=== PATIENT | male | born 1960 | race Hispanic/Latino ===

== ENCOUNTER 2023-09-28 11:09 | Inpatient (IN) | payer SELFPAY ==
[2023-09-28 12:11] LABS: #Monocytes 0.7 thou/uL (0.11-0.59); %Basophils 0.2 % (0.0-1.0); %Lymphocytes 11.9 % (21.0-51.0); %Monocytes 4.9 % (0.0-10.0); %Neutrophils 82.6 % (42.0-75.0); Hematocrit 34.8 % (42.0-52.0); Mean Corpuscular HGB CONC 34.5 g/dL (32.0-36.0); Mean Corpuscular Hemoglobin 28.4 pg (27.0-31.0); Mean Corpuscular Volume 82.5 fl (78.0-98.0); Mean Platelet Volume 10.5 fL (7.4-10.4); Platelet Count 329 10x3/uL (130-400); RBC Distribution Width 13.7 % (11.5-14.5); Red Blood Cell (RBC) Count 4.22 mill/uL (4.70-6.10); White Blood Cell (WBC) Count 13.3 10x3/uL (4.8-10.8)
[2023-09-28 12:34] LABS: ALT (SGPT) 15 U/L (8-55); AST (SGOT) 22 U/L (5-34); Albumin 4.7 g/dL (3.5-5.0); Alkaline Phosphatase 92 U/L (40-110); Anion Gap 22 mmol/L (10-20); BUN (Urea Nitrogen) 56 mg/dL (8.4-25.7); Bilirubin, Total 1.4 mg/dL (0.2-1.2); Calc. Creatinine Clearance 0 mL/min (70-130); Carbon Dioxide 21 mmol/L (22-29); Chloride 102 mmol/L (98-107); Estimated GFR 25; Globulin 3.8 g/dL (2.4-3.5); Glucose 383 mg/dL (70-105); Lipase 20 U/L (8-78); Potassium 4.6 mmol/L (3.5-5.1); Protein, Total 8.5 g/dL (6.0-8.3); Sodium 140 mmol/L (136-145)
[2023-09-28] MEDS ORDERED: Ondansetron PF 4 MG/2 ML Vial ONE (12:39)
[2023-09-28 14:06] LABS: Bacteria/HPF 2+ HPF (None Seen); Bilirubin Negative (Negative); Blood, Urine 1+ (Negative); CAUTI Indications for Culture Pelvic or flank pain; Clarity Turbid (Clear); Glucose, Urine (Dipstick) Greater than 1000 mg/dL (Negative); Ketone, Urine 20 mg/dL (Negative); Leukocyte 500 Leu/uL (Negative); Nitrite Negative (Negative); Protein, Urine (Dipstick) 50 mg/dL (Neg-Trace); Specific Gravity, Urine 1.016 (1.002-1.036); Squamous Epithelial 0-3 HPF (0-3); Urobilinogen Normal mg/dL (Less than 2); WBC/HPF Greater than 50 HPF (0-3); pH, Urine 5.5 (5.0-9.0)
[2023-09-28 14:11] LABS: Urine Culture Reflex Yes Yes
[2023-09-28] MEDS ORDERED: Sodium Chloride 0.9% 100 ML ONE (14:38)
[2023-09-28] MEDS ORDERED: cefTRIAXone (ROCEPHIN) 1 GM VIAL ONE (14:38)
[2023-09-28] MEDS ORDERED: INSULIN REGULAR IN 0.9 % NACL 100 UNITS/100 ML BAG ONE (15:10)
[2023-09-28 15:14] LABS: Actual Bicarbonate (HCO3v) 18.2 mEq/L (22-28); Base Excess -7.9 mEq/L (-2.0 to +3.0); Calcium, Ionized (venous) 1.14 mmol/L (1.16-1.32); Chloride (VBG) 103 mmol/L (98-106); Hematocrit-VBG 36 % (42.0-52.0); Hemoglobin (Hb) 12.3 g/dL (13.1-17.2); Potassium (VBG) 4.64 mmol/L (3.70-5.30); Sodium 141 mmol/L (133-146); pH (venous) 7.286 (7.32-7.43)
[2023-09-28] MEDS ORDERED: NS 0.9% w/ 20 MEQ KCL 1,000 ML ONE (17:10)
[2023-09-28] MEDS ORDERED: Dextrose 10% in Water 250 ML ONE (17:27)
[2023-09-28] MEDS ORDERED: D5 1/2 NS w/20 mEq KCL 0 ML ONE (17:35)
[2023-09-28] MEDS ORDERED: Electrolyte Replacement Protocol 1 EACH IVPB ONE (18:27)
[2023-09-28] MEDS ORDERED: Dextrose 50% Abboject 50 ML SYRINGE SLOW IVP PRN ×2 (18:27→19:45)
[2023-09-28] MEDS ORDERED: Acetaminophen 650 MG Suppository PR PRN (18:27)
[2023-09-28] MEDS ORDERED: Sodium Chloride 0.9% 1,000 ML IV PRN ×4 (18:27)
[2023-09-28] MEDS ORDERED: D5 1/2 NS w/20 mEq KCL 1,000 ML IV PRN (18:27)
[2023-09-28] MEDS ORDERED: NS 0.9% w/ 20 MEQ KCL 1,000 ML IV PRN ×2 (18:27)
[2023-09-28] MEDS ORDERED: HUMULIN R 100 UNITS in Sodium Chloride 0.9% 100 ML IVPB SCH (18:27)
[2023-09-28] MEDS ORDERED: Dextrose 5 %-0.45 % NaCl 1,000 ML IV PRN (18:27)
[2023-09-28] MEDS ORDERED: Ondansetron ODT 4 MG TAB PO PRN (18:27)
[2023-09-28] MEDS ORDERED: Senokot S 8.6-50 MG TAB PO PRN (18:27)
[2023-09-28] MEDS ORDERED: Guaifenesin DM 100-10/5 ML UDCUP PO PRN (18:27)
[2023-09-28] MEDS ORDERED: Acetaminophen 325 MG TAB PO PRN (18:27)
[2023-09-28 18:32] VITALS: BMI 18.3
[2023-09-28 19:12] LABS: Anion Gap 17 mmol/L (10-20); BUN (Urea Nitrogen) 46 mg/dL (8.4-25.7); Calc. Creatinine Clearance 28 mL/min (70-130); Calcium 8.6 mg/dL (7.8-10.44); Carbon Dioxide 19 mmol/L (22-29); Chloride 106 mmol/L (98-107); Estimated GFR 34; Glucose 150 mg/dL (70-105); Potassium 3.7 mmol/L (3.5-5.1); Sodium 138 mmol/L (136-145)
[2023-09-28] MEDS ORDERED: Glucagon 1 MG/ML KIT IM PRN (19:45)
[2023-09-28] MEDS ORDERED: Dextrose 5% in Water 1,000 ML IV PRN (19:45)
[2023-09-28] MEDS ORDERED: HumaLOG 300 UNITS/3 ML VIAL SC PRN (19:45)
[2023-09-28] MEDS ORDERED: Insulin Glargine 30 UNITS/0.3 ML VIAL SC SCH (20:00)
[2023-09-28] MEDS: Famotidine 20 MG TAB PO SCH (22:44)
[2023-09-28] MEDS: Insulin Glargine 30 UNITS/0.3 ML VIAL SC SCH (23:07)
[2023-09-28 23:14] LABS: Anion Gap 13 mmol/L (10-20); BUN (Urea Nitrogen) 41 mg/dL (8.4-25.7); Calc. Creatinine Clearance 29 mL/min (70-130); Calcium 8.5 mg/dL (7.8-10.44); Carbon Dioxide 19 mmol/L (22-29); Chloride 108 mmol/L (98-107); Estimated GFR 35; Glucose 147 mg/dL (70-105); Sodium 136 mmol/L (136-145)
[2023-09-29 03:09] LABS: Anion Gap 13 mmol/L (10-20); BUN (Urea Nitrogen) 38 mg/dL (8.4-25.7); Calc. Creatinine Clearance 31 mL/min (70-130); Calcium 8.3 mg/dL (7.8-10.44); Carbon Dioxide 20 mmol/L (22-29); Chloride 107 mmol/L (98-107); Estimated GFR 39; Glucose 182 mg/dL (70-105); Potassium 3.9 mmol/L (3.5-5.1); Sodium 136 mmol/L (136-145)
[2023-09-29] MEDS: Ondansetron PF 4 MG/2 ML Vial IVP PRN ×2 (04:50→19:21)
[2023-09-29 06:10] LABS: #Basophils 0.1 thou/uL (0.0-0.2); #Monocytes 0.6 thou/uL (0.11-0.59); #Neutrophils 7.1 thou/uL (1.40-6.50); %Basophils 0.5 % (0.0-1.0); %Eosinophils 0.3 % (0.0-10.0); %Lymphocytes 22.8 % (21.0-51.0); %Monocytes 6.2 % (0.0-10.0); %Neutrophils 69.9 % (42.0-75.0); Hematocrit 32.9 % (42.0-52.0); Hemoglobin 11.3 g/dL (14.0-18.0); Mean Corpuscular HGB CONC 34.3 g/dL (32.0-36.0); Mean Corpuscular Volume 81.4 fl (78.0-98.0); Mean Platelet Volume 11.5 fL (7.4-10.4); Platelet Count 258 10x3/uL (130-400); RBC Distribution Width 13.6 % (11.5-14.5); Red Blood Cell (RBC) Count 4.04 mill/uL (4.70-6.10); White Blood Cell (WBC) Count 10.1 10x3/uL (4.8-10.8)
[2023-09-29 06:16] LABS: Hemoglobin A1c 12.9 % (4.0-6.0)
[2023-09-29 06:34] LABS: Anion Gap 15 mmol/L (10-20); BUN (Urea Nitrogen) 35 mg/dL (8.4-25.7); Calc. Creatinine Clearance 31 mL/min (70-130); Calcium 8.9 mg/dL (7.8-10.44); Carbon Dioxide 20 mmol/L (22-29); Chloride 106 mmol/L (98-107); Estimated GFR 38; Glucose 164 mg/dL (70-105); Potassium 3.8 mmol/L (3.5-5.1); Sodium 137 mmol/L (136-145)
[2023-09-29] MEDS ORDERED: Promethazine HCl 25 MG in Sodium Chloride 0.9% 50 ML IVPB PRN (06:45)
[2023-09-29] MEDS ORDERED: Prochlorperazine Edisylate 10 MG in Sodium Chloride 0.9% 50 ML IVPB PRN (07:02)
[2023-09-29] MEDS: Sodium Chloride 0.9% 1,000 ML IV SCH ×2 (07:23→17:35)
[2023-09-29] MEDS ORDERED: Labetalol HCl 100 MG/20 ML VIAL SLOW IVP PRN (08:09)
[2023-09-29] MEDS ORDERED: hydrALAZINE 20 MG/ML VIAL SLOW IVP PRN (08:09)
[2023-09-29] MEDS: Tamsulosin HCl 0.4 MG CAP PO SCH (08:47)
[2023-09-29] MEDS: Amlodipine 5 MG TAB PO SCH (08:48)
[2023-09-29] MEDS ORDERED: Metoclopramide HCl 10 MG/2 ML VIAL IVP PRN (10:35)
[2023-09-29] MEDS: HumaLOG 300 UNITS/3 ML VIAL SC PRN (12:44)
[2023-09-29] MEDS: cefTRIAXone\\ROCEPHIN 1 GM in Sodium Chloride 0.9% 100 ML IVPB SCH (14:31)
[2023-09-29] MEDS: Famotidine 20 MG TAB PO SCH (19:21)
[2023-09-29] MEDS ORDERED: hydrOXYzine 25 MG TAB PO SCH (19:45)
[2023-09-29] MEDS: Insulin Glargine 30 UNITS/0.3 ML VIAL SC SCH (20:33)
[2023-09-30] MEDS: Sodium Chloride 0.9% 1,000 ML IV SCH ×4 (02:53→23:29)
[2023-09-30 05:57] LABS: #Basophils 0.1 thou/uL (0.0-0.2); #Eosinphils 0.1 thou/uL (0.0-0.7); #Monocytes 0.6 thou/uL (0.11-0.59); #Neutrophils 3.3 thou/uL (1.40-6.50); %Basophils 0.8 % (0.0-1.0); %Lymphocytes 34.9 % (21.0-51.0); %Monocytes 9.2 % (0.0-10.0); %Neutrophils 53.9 % (42.0-75.0); Hematocrit 28.1 % (42.0-52.0); Hemoglobin 9.8 g/dL (14.0-18.0); Mean Corpuscular HGB CONC 34.9 g/dL (32.0-36.0); Mean Corpuscular Hemoglobin 28.7 pg (27.0-31.0); Mean Corpuscular Volume 82.4 fl (78.0-98.0); Mean Platelet Volume 11.1 fL (7.4-10.4); Platelet Count 235 10x3/uL (130-400); RBC Distribution Width 13.5 % (11.5-14.5); Red Blood Cell (RBC) Count 3.41 mill/uL (4.70-6.10); White Blood Cell (WBC) Count 6.1 10x3/uL (4.8-10.8)
[2023-09-30 06:29] LABS: Anion Gap 12 mmol/L (10-20); BUN (Urea Nitrogen) 22 mg/dL (8.4-25.7); Calc. Creatinine Clearance 39 mL/min (70-130); Calcium 8.3 mg/dL (7.8-10.44); Carbon Dioxide 21 mmol/L (22-29); Chloride 109 mmol/L (98-107); Estimated GFR 50; Glucose 97 mg/dL (70-105); Potassium 3.5 mmol/L (3.5-5.1); Sodium 138 mmol/L (136-145)
[2023-09-30] MEDS: Amlodipine 5 MG TAB PO SCH (08:34)
[2023-09-30] MEDS: Tamsulosin HCl 0.4 MG CAP PO SCH (08:34)
[2023-09-30] MEDS: HumaLOG 300 UNITS/3 ML VIAL SC PRN ×2 (13:30→17:45)
[2023-09-30] MEDS: cefTRIAXone\\ROCEPHIN 1 GM in Sodium Chloride 0.9% 100 ML IVPB SCH (14:54)
[2023-09-30] MEDS: Famotidine 20 MG TAB PO SCH (20:24)
[2023-09-30] MEDS: Insulin Glargine 30 UNITS/0.3 ML VIAL SC SCH (20:24)
[2023-10-01] MEDS: Sodium Chloride 0.9% 1,000 ML IV SCH ×3 (05:05→21:24)
[2023-10-01 06:12] LABS: Anion Gap 12 mmol/L (10-20); BUN (Urea Nitrogen) 17 mg/dL (8.4-25.7); Calc. Creatinine Clearance 34 mL/min (70-130); Carbon Dioxide 20 mmol/L (22-29); Chloride 108 mmol/L (98-107); Estimated GFR 42; Glucose 199 mg/dL (70-105); Potassium 3.5 mmol/L (3.5-5.1); Sodium 136 mmol/L (136-145)
[2023-10-01] MEDS: Amlodipine 5 MG TAB PO SCH (08:19)
[2023-10-01] MEDS: Tamsulosin HCl 0.4 MG CAP PO SCH (08:19)
[2023-10-01] MEDS: HumaLOG 300 UNITS/3 ML VIAL SC PRN ×2 (12:48→17:29)
[2023-10-01] MEDS: CEFAZOLIN 1 GM in Sodium Chloride 0.9% 100 ML IVPB SCH ×2 (14:13→21:23)
[2023-10-01] MEDS: Famotidine 20 MG TAB PO SCH (21:23)
[2023-10-01] MEDS: Insulin Glargine 30 UNITS/0.3 ML VIAL SC SCH (21:34)
[2023-10-02] MEDS: CEFAZOLIN 1 GM in Sodium Chloride 0.9% 100 ML IVPB SCH ×3 (05:28→20:49)
[2023-10-02] MEDS: Sodium Chloride 0.9% 1,000 ML IV SCH ×2 (05:29→20:33)
[2023-10-02 06:40] LABS: #Eosinphils 0.3 thou/uL (0.0-0.7); #Monocytes 0.5 thou/uL (0.11-0.59); #Neutrophils 2.8 thou/uL (1.40-6.50); %Basophils 0.6 % (0.0-1.0); %Eosinophils 5.9 % (0.0-10.0); %Lymphocytes 32.9 % (21.0-51.0); %Monocytes 8.7 % (0.0-10.0); %Neutrophils 51.7 % (42.0-75.0); Hematocrit 26.8 % (42.0-52.0); Hemoglobin 9.3 g/dL (14.0-18.0); Mean Corpuscular HGB CONC 34.7 g/dL (32.0-36.0); Mean Corpuscular Hemoglobin 28.2 pg (27.0-31.0); Mean Corpuscular Volume 81.2 fl (78.0-98.0); Mean Platelet Volume 11.4 fL (7.4-10.4); Platelet Count 202 10x3/uL (130-400); RBC Distribution Width 13.3 % (11.5-14.5); White Blood Cell (WBC) Count 5.4 10x3/uL (4.8-10.8)
[2023-10-02 07:09] LABS: Anion Gap 10 mmol/L (10-20); BUN (Urea Nitrogen) 15 mg/dL (8.4-25.7); Calc. Creatinine Clearance 34 mL/min (70-130); Carbon Dioxide 23 mmol/L (22-29); Chloride 109 mmol/L (98-107); Estimated GFR 43; Glucose 194 mg/dL (70-105); Magnesium 1.9 mg/dL (1.6-2.6); Potassium 3.5 mmol/L (3.5-5.1); Sodium 138 mmol/L (136-145)
[2023-10-02] MEDS: Amlodipine 10 MG TAB PO SCH (08:32)
[2023-10-02] MEDS: Tamsulosin HCl 0.4 MG CAP PO SCH (08:32)
[2023-10-02] MEDS: Polyethylene Glycol 3350 17 GM Packet PO SCH (10:24)
[2023-10-02] MEDS: Senokot S 8.6-50 MG TAB PO SCH ×2 (10:24→20:35)
[2023-10-02] MEDS: HumaLOG 300 UNITS/3 ML VIAL SC PRN (12:23)
[2023-10-02] MEDS ORDERED: Aspirin 325 mg Enteric Coated Tablet PO SCH (14:00)
[2023-10-02] MEDS: Insulin Glargine 30 UNITS/0.3 ML VIAL SC SCH (20:33)
[2023-10-02] MEDS: Famotidine 20 MG TAB PO SCH (20:34)
[2023-10-02] MEDS: Atorvastatin Calcium 40 MG TAB PO SCH (20:34)
[2023-10-03] MEDS: CEFAZOLIN 1 GM in Sodium Chloride 0.9% 100 ML IVPB SCH ×3 (05:05→21:16)
[2023-10-03] MEDS: Sodium Chloride 0.9% 1,000 ML IV SCH (05:05)
[2023-10-03 06:01] LABS: #Eosinphils 0.4 thou/uL (0.0-0.7); #Monocytes 0.5 thou/uL (0.11-0.59); #Neutrophils 3.7 thou/uL (1.40-6.50); %Basophils 0.7 % (0.0-1.0); %Eosinophils 7.1 % (0.0-10.0); %Lymphocytes 24.3 % (21.0-51.0); %Monocytes 7.4 % (0.0-10.0); %Neutrophils 60.3 % (42.0-75.0); Hematocrit 26.7 % (42.0-52.0); Hemoglobin 9.2 g/dL (14.0-18.0); Mean Corpuscular HGB CONC 34.5 g/dL (32.0-36.0); Mean Corpuscular Hemoglobin 27.9 pg (27.0-31.0); Mean Corpuscular Volume 80.9 fl (78.0-98.0); Mean Platelet Volume 11.8 fL (7.4-10.4); Platelet Count 217 10x3/uL (130-400); RBC Distribution Width 13.5 % (11.5-14.5); White Blood Cell (WBC) Count 6.1 10x3/uL (4.8-10.8)
[2023-10-03 06:18] LABS: Iron 19 ug/dL (65-175); Iron Binding Capacity, Total 168 mcg/dL (261-462)
[2023-10-03 06:21] LABS: Anion Gap 11 mmol/L (10-20); BUN (Urea Nitrogen) 17 mg/dL (8.4-25.7); Calc. Creatinine Clearance 33 mL/min (70-130); Calcium 8.1 mg/dL (7.8-10.44); Carbon Dioxide 24 mmol/L (22-29); Chloride 109 mmol/L (98-107); Estimated GFR 41; Glucose 235 mg/dL (70-105); Iron 19 ug/dL (65-175); Iron Binding Capacity, Total 170 mcg/dL (261-462); Sodium 140 mmol/L (136-145)
[2023-10-03 06:43] LABS: Ferritin 167.67 ng/mL (22-322)
[2023-10-03] MEDS: HumaLOG 300 UNITS/3 ML VIAL SC PRN (07:50)
[2023-10-03] MEDS ORDERED: Cyanocobalamin 1000 MCG/ML VIAL IM SCH (09:00)
[2023-10-03] MEDS: Polyethylene Glycol 3350 17 GM Packet PO SCH (11:53)
[2023-10-03] MEDS: Senokot S 8.6-50 MG TAB PO SCH ×2 (11:53→21:18)
[2023-10-03] MEDS: Aspirin 81 mg Enteric Coated Tablet PO SCH (11:54)
[2023-10-03] MEDS: Amlodipine 10 MG TAB PO SCH (11:54)
[2023-10-03] MEDS: Tamsulosin HCl 0.4 MG CAP PO SCH (11:54)
[2023-10-03] MEDS: Cyanocobalamin (Vitamin B-12) 1,000 MCG TAB PO SCH (11:57)
[2023-10-03] MEDS ORDERED: Milk Of Magnesia 30 ML UDCUP PO PRN (17:56)
[2023-10-03] MEDS: Insulin Glargine 30 UNITS/0.3 ML VIAL SC SCH (21:16)
[2023-10-03] MEDS: Atorvastatin Calcium 40 MG TAB PO SCH (21:17)
[2023-10-03] MEDS: Famotidine 20 MG TAB PO SCH (21:18)
[2023-10-04 03:40] LABS: #Basophils 0.1 thou/uL (0.0-0.2); #Eosinphils 0.6 thou/uL (0.0-0.7); #Monocytes 0.7 thou/uL (0.11-0.59); #Neutrophils 4.2 thou/uL (1.40-6.50); %Basophils 0.7 % (0.0-1.0); %Eosinophils 7.4 % (0.0-10.0); %Lymphocytes 27.1 % (21.0-51.0); %Monocytes 9.6 % (0.0-10.0); %Neutrophils 54.8 % (42.0-75.0); Hematocrit 27.8 % (42.0-52.0); Hemoglobin 9.6 g/dL (14.0-18.0); Mean Corpuscular HGB CONC 34.5 g/dL (32.0-36.0); Mean Corpuscular Hemoglobin 28.2 pg (27.0-31.0); Mean Corpuscular Volume 81.5 fl (78.0-98.0); Mean Platelet Volume 11.3 fL (7.4-10.4); Platelet Count 229 10x3/uL (130-400); RBC Distribution Width 13.8 % (11.5-14.5); Red Blood Cell (RBC) Count 3.41 mill/uL (4.70-6.10); White Blood Cell (WBC) Count 7.7 10x3/uL (4.8-10.8)
[2023-10-04 04:13] LABS: Anion Gap 12 mmol/L (10-20); BUN (Urea Nitrogen) 17 mg/dL (8.4-25.7); Calc. Creatinine Clearance 30 mL/min (70-130); Calcium 8.5 mg/dL (7.8-10.44); Carbon Dioxide 26 mmol/L (22-29); Chloride 105 mmol/L (98-107); Estimated GFR 36; Glucose 136 mg/dL (70-105); Magnesium 1.8 mg/dL (1.6-2.6); Potassium 3.9 mmol/L (3.5-5.1); Sodium 139 mmol/L (136-145)
[2023-10-04] MEDS: CEFAZOLIN 1 GM in Sodium Chloride 0.9% 100 ML IVPB SCH (06:33)
[2023-10-04] MEDS: HumaLOG 300 UNITS/3 ML VIAL SC PRN ×3 (06:34→18:12)
[2023-10-04] MEDS: Tamsulosin HCl 0.4 MG CAP PO SCH (09:09)
[2023-10-04] MEDS: Senokot S 8.6-50 MG TAB PO SCH ×2 (09:09→21:36)
[2023-10-04] MEDS: Polyethylene Glycol 3350 17 GM Packet PO SCH (09:09)
[2023-10-04] MEDS: Aspirin 81 mg Enteric Coated Tablet PO SCH (09:09)
[2023-10-04] MEDS: Cyanocobalamin (Vitamin B-12) 1,000 MCG TAB PO SCH (09:09)
[2023-10-04] MEDS: Amlodipine 10 MG TAB PO SCH (09:09)
[2023-10-04] MEDS: Sodium Chloride 0.9% 1,000 ML IV SCH (10:05)
[2023-10-04 13:37] LABS: Creatinine, Urine 35.84 mg/dL (63-166)
[2023-10-04] MEDS: Atorvastatin Calcium 40 MG TAB PO SCH (21:36)
[2023-10-04] MEDS: Insulin Glargine 30 UNITS/0.3 ML VIAL SC SCH (21:36)
[2023-10-05 04:59] LABS: #Eosinphils 0.6 thou/uL (0.0-0.7); #Monocytes 0.7 thou/uL (0.11-0.59); #Neutrophils 4.2 thou/uL (1.40-6.50); %Basophils 0.4 % (0.0-1.0); %Eosinophils 7.5 % (0.0-10.0); %Lymphocytes 25.2 % (21.0-51.0); %Monocytes 9.8 % (0.0-10.0); %Neutrophils 56.7 % (42.0-75.0); Hematocrit 25.6 % (42.0-52.0); Hemoglobin 8.7 g/dL (14.0-18.0); Mean Corpuscular Hemoglobin 28.6 pg (27.0-31.0); Mean Corpuscular Volume 84.2 fl (78.0-98.0); Mean Platelet Volume 11.2 fL (7.4-10.4); Platelet Count 236 10x3/uL (130-400); Red Blood Cell (RBC) Count 3.04 mill/uL (4.70-6.10); White Blood Cell (WBC) Count 7.4 10x3/uL (4.8-10.8)
[2023-10-05 05:38] LABS: Anion Gap 12 mmol/L (10-20); BUN (Urea Nitrogen) 18 mg/dL (8.4-25.7); Calc. Creatinine Clearance 28 mL/min (70-130); Calcium 8.3 mg/dL (7.8-10.44); Carbon Dioxide 26 mmol/L (22-29); Chloride 102 mmol/L (98-107); Estimated GFR 34; Glucose 262 mg/dL (70-105); Magnesium 1.8 mg/dL (1.6-2.6); Potassium 4.1 mmol/L (3.5-5.1); Sodium 136 mmol/L (136-145)
[2023-10-05] MEDS: HumaLOG 300 UNITS/3 ML VIAL SC PRN (06:44)
[2023-10-05] MEDS ORDERED: Cholecalciferol (Vitamin D3) 400 UNITS TAB PO SCH (09:00)
[2023-10-05] MEDS: Sodium Chloride 0.9% 1,000 ML IV SCH ×2 (09:32→12:43)
[2023-10-05] MEDS: Amlodipine 5 MG TAB PO SCH (09:33)
[2023-10-05] MEDS: Polyethylene Glycol 3350 17 GM Packet PO SCH (09:34)
[2023-10-05] MEDS: Cyanocobalamin (Vitamin B-12) 1,000 MCG TAB PO SCH (09:34)
[2023-10-05] MEDS: Tamsulosin HCl 0.4 MG CAP PO SCH (09:34)
[2023-10-05] MEDS: Senokot S 8.6-50 MG TAB PO SCH ×2 (09:34→20:48)
[2023-10-05] MEDS: Aspirin 81 mg Enteric Coated Tablet PO SCH (09:34)
[2023-10-05] MEDS ORDERED: Epoetin (ESRD) 10,000 UNITS/ML VIAL SC SCH (10:00)
[2023-10-05] MEDS ORDERED: Tamsulosin HCl 0.4 MG CAP PO SCH (11:45)
[2023-10-05] MEDS ORDERED: EPOETIN ALFA-EPBX (ESRD) 10,000 UNITS/ML VIAL SC SCH (12:00)
[2023-10-05] MEDS: HumaLOG 300 UNITS/3 ML VIAL SC SCH ×2 (12:42→17:54)
[2023-10-05] MEDS: Atorvastatin Calcium 40 MG TAB PO SCH (20:48)
[2023-10-05] MEDS: Insulin Glargine 30 UNITS/0.3 ML VIAL SC SCH (20:48)
[2023-10-06] MEDS: Sodium Chloride 0.9% 1,000 ML IV SCH ×2 (03:36→13:46)
[2023-10-06 04:03] LABS: #Eosinphils 0.5 thou/uL (0.0-0.7); #Monocytes 0.7 thou/uL (0.11-0.59); #Neutrophils 3.2 thou/uL (1.40-6.50); %Basophils 0.6 % (0.0-1.0); %Lymphocytes 31.7 % (21.0-51.0); %Monocytes 10.3 % (0.0-10.0); %Neutrophils 49.1 % (42.0-75.0); Hematocrit 27.4 % (42.0-52.0); Hemoglobin 9.1 g/dL (14.0-18.0); Mean Corpuscular HGB CONC 33.2 g/dL (32.0-36.0); Mean Corpuscular Hemoglobin 28.1 pg (27.0-31.0); Mean Corpuscular Volume 84.6 fl (78.0-98.0); Mean Platelet Volume 11.2 fL (7.4-10.4); Platelet Count 284 10x3/uL (130-400); RBC Distribution Width 14.1 % (11.5-14.5); Red Blood Cell (RBC) Count 3.24 mill/uL (4.70-6.10); White Blood Cell (WBC) Count 6.5 10x3/uL (4.8-10.8)
[2023-10-06 04:53] LABS: Anion Gap 10 mmol/L (10-20); BUN (Urea Nitrogen) 17 mg/dL (8.4-25.7); Calc. Creatinine Clearance 29 mL/min (70-130); Carbon Dioxide 29 mmol/L (22-29); Chloride 102 mmol/L (98-107); Estimated GFR 35; Potassium 4.2 mmol/L (3.5-5.1); Sodium 137 mmol/L (136-145)
[2023-10-06 04:54] LABS: Calcium 8.7 mg/dL (7.6-10.4); Glucose 141 mg/dL (70-105)
[2023-10-06] MEDS ORDERED: Ferrous Gluconate 324 MG TAB PO SCH (08:00)
[2023-10-06] MEDS ORDERED: Tamsulosin HCl 0.4 MG CAP PO SCH (09:00)
[2023-10-06] MEDS: Cyanocobalamin (Vitamin B-12) 1,000 MCG TAB PO SCH (09:38)
[2023-10-06] MEDS: Senokot S 8.6-50 MG TAB PO SCH ×2 (09:38→20:20)
[2023-10-06] MEDS: Amlodipine 5 MG TAB PO SCH (09:38)
[2023-10-06] MEDS: Aspirin 81 mg Enteric Coated Tablet PO SCH (09:39)
[2023-10-06] MEDS: HumaLOG 300 UNITS/3 ML VIAL SC SCH ×4 (09:39→18:51)
[2023-10-06] MEDS: Polyethylene Glycol 3350 17 GM Packet PO SCH (10:16)
[2023-10-06 19:55] VITALS: BP 126/76; TEMP 98.9
[2023-10-06] MEDS: Insulin Glargine 30 UNITS/0.3 ML VIAL SC SCH (20:19)
[2023-10-06] MEDS: Atorvastatin Calcium 40 MG TAB PO SCH (20:19)
[2023-10-07 11:37] LABS: ANA Symphony (Qualitative) Negative (Negative); ANA Symphony (Quantitative) 0.1 Ratio (< 0.7 Negative)
[2023-10-10 04:37] LABS: Methylmalonic Acid 2615 nmol/L (0-378)
[2023-10-12] MEDS ORDERED: Ergocalciferol 1.25 MG(50,000 UNITS) CAP PO SCH (09:00)
== END 2023-10-06 20:32 | disposition home or self-care (01) | DRG 871 ==
LOC: ERS 11:09 → ERHOLD 16:24 → T4-A 21:16 → 2SE 10-02 17:00
PROVIDERS: ADMIT Emergency Medicine; ATTEND Internal Medicine
PROC: 4A043R1 Measurement of Venous Saturation, Peripheral, Percutaneous Approach (ICD-10-PCS; principal; 2023-09-28)
PROC: 3E03329 Introduction of Other Anti-infective into Peripheral Vein, Percutaneous Approach (ICD-10-PCS; 2023-09-29)
DX: A41.9 Sepsis, unspecified organism (principal); E11.10 Type 2 diabetes mellitus with ketoacidosis without coma; N39.0 Urinary tract infection, site not specified; N17.9 Acute kidney failure, unspecified; N25.81 Secondary hyperparathyroidism of renal origin; Z79.899 Other long term (current) drug therapy; N40.1 Benign prostatic hyperplasia with lower urinary tract symptoms; Z79.4 Long term (current) use of insulin; K59.00 Constipation, unspecified; E53.8 Deficiency of other specified B group vitamins; N18.30 Chronic kidney disease, stage 3 unspecified; I12.9 Hypertensive chronic kidney disease with stage 1 through stage 4 chronic kidney disease, or unspecified chronic kidney disease; E11.22 Type 2 diabetes mellitus with diabetic chronic kidney disease; E11.65 Type 2 diabetes mellitus with hyperglycemia; Z79.82 Long term (current) use of aspirin; R33.8 Other retention of urine; D63.8 Anemia in other chronic diseases classified elsewhere; E86.0 Dehydration
CPT/HCPCS: 36415; 36416; 70450; 70551; 71045; 74176; 80048; 80053; 81001; 82010; 82306; 82570; 82607; 82728; 82805; 83036; 83090; 83540; 83550; 83605; 83690; 83735; 83921; 83970; 84156; 85025; 85046; 86038; 86225; 86340; 87040; 87086; 93005; 93010; 93306; 93880; 96361; 96365; 96366; 96367; 96375; J0360; J0690; J0696; J0780; J1650; J1815; J2405; J2765; J3480; J3490; J7050; Q5105

== ENCOUNTER 2023-12-08 23:52 | Inpatient (IN) | payer MEDICAID, SELFPAY ==
[2023-12-09 00:31] LABS: #Eosinphils 0.1 thou/uL (0.0-0.7); #Monocytes 0.8 thou/uL (0.11-0.59); #Neutrophils 13.3 thou/uL (1.40-6.50); %Basophils 0.2 % (0.0-1.0); %Eosinophils 0.3 % (0.0-10.0); %Lymphocytes 8.6 % (21.0-51.0); %Monocytes 5.3 % (0.0-10.0); %Neutrophils 84.8 % (42.0-75.0); Hematocrit 31.5 % (42.0-52.0); Hemoglobin 10.8 g/dL (14.0-18.0); Mean Corpuscular HGB CONC 34.3 g/dL (32.0-36.0); Mean Corpuscular Hemoglobin 28.1 pg (27.0-31.0); Mean Platelet Volume 9.7 fL (7.4-10.4); Platelet Count 575 10x3/uL (130-400); RBC Distribution Width 13.8 % (11.5-14.5); Red Blood Cell (RBC) Count 3.84 mill/uL (4.70-6.10); White Blood Cell (WBC) Count 15.7 10x3/uL (4.8-10.8)
[2023-12-09 00:34] LABS: Actual Bicarbonate (HCO3v) 20.1 mEq/L (22-28); Base Excess -5.1 mEq/L (-2.0 to +3.0); Calcium, Ionized (venous) 1.14 mmol/L (1.16-1.32); Chloride (VBG) 96 mmol/L (98-106); Hematocrit-VBG 36 % (42.0-52.0); Hemoglobin (Hb) 12.3 g/dL (13.1-17.2); Potassium (VBG) 5.43 mmol/L (3.70-5.30); Sodium 131 mmol/L (133-146); pH (venous) 7.341 (7.32-7.43)
[2023-12-09] MEDS ORDERED: Morphine 2 MG/ML VIAL ONE (00:50)
[2023-12-09] MEDS ORDERED: Ondansetron PF 4 MG/2 ML Vial ONE (00:50)
[2023-12-09 01:00] LABS: Troponin I Less than 0.010 ng/mL (< 0.028)
[2023-12-09] MEDS ORDERED: Pantoprazole 40 MG VIAL ONE (01:28)
[2023-12-09 02:42] LABS: ALT (SGPT) 12 U/L (8-55); AST (SGOT) 11 U/L (5-34); Albumin 3.8 g/dL (3.4-4.8); Alkaline Phosphatase 106 U/L (40-110); Anion Gap 24 mmol/L (10-20); Bilirubin, Total 0.7 mg/dL (0.2-1.2); Calc. Creatinine Clearance 0 mL/min (70-130); Calcium 9.1 mg/dL (7.8-10.44); Carbon Dioxide 15 mmol/L (23-31); Chloride 97 mmol/L (98-107); Estimated GFR 12; Globulin 3.9 g/dL (2.4-3.5); Lipase 9 U/L (8-78); Potassium 5.5 mmol/L (3.5-5.1); Protein, Total 7.7 g/dL (5.8-8.1); Sodium 130 mmol/L (136-145)
[2023-12-09 02:49] LABS: BUN (Urea Nitrogen) 65 mg/dL (8.4-25.7)
[2023-12-09 02:51] LABS: Critical Call Chemistry NUR.KB14@0250; Glucose 425 mg/dL (80-115)
[2023-12-09 03:42] VITALS: BMI 20.9
[2023-12-09 04:03] LABS: Bacteria/HPF None Seen HPF (None Seen); Bilirubin Negative (Negative); Blood, Urine 2+ (Negative); CAUTI Indications for Culture Dysuria,urgency,freq; Clarity Turbid (Clear); Glucose, Urine (Dipstick) >=1000 mg/dL (Negative); Ketone, Urine Negative (Negative); Leukocyte 500 Leu/uL (Negative); Nitrite Negative (Negative); Protein, Urine (Dipstick) 50 mg/dL (Neg-Trace); Specific Gravity, Urine 1.009 (1.002-1.036); Squamous Epithelial 0-3 HPF (0-3); Urobilinogen Normal mg/dL (Less than 2); WBC/HPF Greater than 50 HPF (0-3)
[2023-12-09 04:05] LABS: Urine Culture Reflex Yes Yes
[2023-12-09] MEDS ORDERED: Ondansetron PF 4 MG/2 ML Vial IVP PRN (04:23)
[2023-12-09] MEDS ORDERED: Insulin Regular 300 UNITS/3 ML VIAL SC PRN ×2 (04:32)
[2023-12-09] MEDS ORDERED: Glucagon 1 MG/ML KIT IM PRN (04:32)
[2023-12-09] MEDS ORDERED: Dextrose 5% in Water 1,000 ML IV PRN (04:32)
[2023-12-09] MEDS ORDERED: Dextrose 50% Abboject 50 ML SYRINGE SLOW IVP PRN (04:32)
[2023-12-09] MEDS ORDERED: cefTRIAXone (ROCEPHIN) 2 GM VIAL ONE (04:33)
[2023-12-09] MEDS ORDERED: Sodium Chloride 0.9% 100 ML ONE (04:33)
[2023-12-09] MEDS ORDERED: Insulin Regular 300 UNITS/3 ML VIAL ONE (04:33)
[2023-12-09] MEDS: Sodium Chloride 0.9% 1,000 ML IV SCH (04:48)
[2023-12-09] MEDS: cefTRIAXone\\ROCEPHIN 1 GM in Sodium Chloride 0.9% 100 ML IVPB SCH (04:51)
[2023-12-09] MEDS ORDERED: Lactulose 20 GM (30 mL) UDCUP ONE (05:29)
[2023-12-09] MEDS: Lactulose 20 GM (30 mL) UDCUP PO SCH (05:33)
[2023-12-09 06:13] LABS: Anion Gap 16 mmol/L (10-20); BUN (Urea Nitrogen) 57 mg/dL (8.4-25.7); Calc. Creatinine Clearance 13 mL/min (70-130); Calcium 8.8 mg/dL (7.8-10.44); Carbon Dioxide 20 mmol/L (23-31); Chloride 98 mmol/L (98-107); Estimated GFR 13; Glucose 397 mg/dL (80-115); Potassium 4.7 mmol/L (3.5-5.1); Sodium 129 mmol/L (136-145)
[2023-12-09] MEDS ORDERED: Acetaminophen 325 MG TAB ONE (09:13)
[2023-12-09] MEDS ORDERED: Senokot S 8.6-50 MG TAB ONE (09:27)
[2023-12-09] MEDS ORDERED: Polyethylene Glycol 3350 17 GM Packet ONE (09:28)
[2023-12-09] MEDS: Acetaminophen 325 MG TAB PO PRN (09:33)
[2023-12-09] MEDS: Polyethylene Glycol 3350 17 GM Packet PO SCH (09:34)
[2023-12-09] MEDS: Senokot S 8.6-50 MG TAB PO SCH (09:34)
[2023-12-09] MEDS: HumuLIN 70/30 100 Unit/ml 10 ml Vial SC SCH (09:59)
[2023-12-09] MEDS ORDERED: Ondansetron ODT 4 MG TAB PO PRN (11:01)
[2023-12-09] MEDS: HumaLOG 300 UNITS/3 ML VIAL SC PRN (11:31)
[2023-12-09] MEDS: Ondansetron PF 4 MG/2 ML Vial IVP PRN (14:04)
[2023-12-09] MEDS: Amlodipine 5 MG TAB PO SCH (16:09)
[2023-12-09] MEDS: Morphine 2 MG/ML VIAL SLOW IVP PRN (17:37)
[2023-12-10] MEDS: Metoclopramide HCl 10 MG (2 mL) VIAL IVP PRN (03:52)
[2023-12-10] MEDS: cefTRIAXone\\ROCEPHIN 2 GM in Sodium Chloride 0.9% 100 ML IVPB SCH (05:17)
[2023-12-10] MEDS: Amlodipine 5 MG TAB PO SCH (08:53)
[2023-12-10] MEDS: Aspirin 81 mg Enteric Coated Tablet PO SCH (08:54)
[2023-12-10] MEDS: Cyanocobalamin (Vitamin B-12) 1,000 MCG TAB PO SCH (08:54)
[2023-12-10] MEDS: Ferrous Gluconate 324 MG TAB PO SCH (08:54)
[2023-12-10] MEDS: Tamsulosin HCl 0.4 MG CAP PO SCH (09:00)
[2023-12-10] MEDS ORDERED: Vancomycin Dose by Levels Sliding Scale (Wt <71) FS SCH (13:15)
[2023-12-10] MEDS: Vancomycin (BATCH) 2 GM in Premix 1 BAG IVPB SCH (13:36)
[2023-12-10 14:27] LABS: #Eosinphils 0.1 thou/uL (0.0-0.7); #Monocytes 0.7 thou/uL (0.11-0.59); #Neutrophils 11.6 thou/uL (1.40-6.50); %Basophils 0.2 % (0.0-1.0); %Eosinophils 0.4 % (0.0-10.0); %Lymphocytes 9.6 % (21.0-51.0); %Monocytes 4.8 % (0.0-10.0); %Neutrophils 84.4 % (42.0-75.0); Hematocrit 26.5 % (42.0-52.0); Hemoglobin 8.9 g/dL (14.0-18.0); Mean Corpuscular HGB CONC 33.6 g/dL (32.0-36.0); Mean Corpuscular Volume 83.3 fl (78.0-98.0); Mean Platelet Volume 9.7 fL (7.4-10.4); Platelet Count 469 10x3/uL (130-400); RBC Distribution Width 14.1 % (11.5-14.5); Red Blood Cell (RBC) Count 3.18 mill/uL (4.70-6.10); White Blood Cell (WBC) Count 13.7 10x3/uL (4.8-10.8)
[2023-12-10 14:42] LABS: Amphetamine Not Detected (NotDetected); Barbiturates Screen Not Detected (NotDetected); Benzodiazepine Screen Not Detected (NotDetected); Cocaine Metabolite Screen Not Detected (NotDetected); Methadone Not Detected (NotDetected); Methamphetamine Not Detected (NotDetected); Opiate Screen Detected (NotDetected); Oxycodone Screen Not Detected (NotDetected); Phencyclidine (PCP) Not Detected (NotDetected); THC/Cannabinoid Screen Not Detected (NotDetected); Tricyclic Screen Not Detected (NotDetected)
[2023-12-10 14:47] LABS: Anion Gap 12 mmol/L (10-20); BUN (Urea Nitrogen) 46 mg/dL (8.4-25.7); Calc. Creatinine Clearance 12 mL/min (70-130); Calcium 8.5 mg/dL (7.8-10.44); Carbon Dioxide 20 mmol/L (23-31); Chloride 106 mmol/L (98-107); Estimated GFR 13; Glucose 166 mg/dL (80-115); Potassium 4.5 mmol/L (3.5-5.1); Sodium 133 mmol/L (136-145)
[2023-12-10] MEDS: HumuLIN 70/30 100 Unit/ml 10 ml Vial SC SCH (17:18)
[2023-12-10] MEDS ORDERED: Insulin Glargine 30 UNITS/0.3 ML VIAL SC SCH (21:00)
[2023-12-10] MEDS ORDERED: Vancomycin (BATCH) 1.25 GM in Premix 1 BAG IVPB SCH (21:00)
[2023-12-10] MEDS: Atorvastatin Calcium 40 MG TAB PO SCH (21:06)
[2023-12-11 04:55] LABS: #Eosinphils 0.1 thou/uL (0.0-0.7); #Monocytes 0.7 thou/uL (0.11-0.59); #Neutrophils 10.2 thou/uL (1.40-6.50); %Basophils 0.2 % (0.0-1.0); %Lymphocytes 8.3 % (21.0-51.0); %Monocytes 5.8 % (0.0-10.0); %Neutrophils 83.9 % (42.0-75.0); Hematocrit 24.4 % (42.0-52.0); Hemoglobin 8.2 g/dL (14.0-18.0); Mean Corpuscular HGB CONC 33.6 g/dL (32.0-36.0); Mean Corpuscular Hemoglobin 27.9 pg (27.0-31.0); Mean Platelet Volume 9.9 fL (7.4-10.4); Platelet Count 446 10x3/uL (130-400); RBC Distribution Width 14.2 % (11.5-14.5); Red Blood Cell (RBC) Count 2.94 mill/uL (4.70-6.10); White Blood Cell (WBC) Count 12.2 10x3/uL (4.8-10.8)
[2023-12-11 05:10] LABS: Anion Gap 13 mmol/L (10-20); BUN (Urea Nitrogen) 43 mg/dL (8.4-25.7); Calc. Creatinine Clearance 13 mL/min (70-130); Calcium 8.5 mg/dL (7.8-10.44); Carbon Dioxide 17 mmol/L (23-31); Chloride 109 mmol/L (98-107); Estimated GFR 14; Glucose 94 mg/dL (80-115); Potassium 4.3 mmol/L (3.5-5.1); Sodium 135 mmol/L (136-145)
[2023-12-11 13:20] LABS: Vancomycin, Random 21.5 ug/mL (See Comment)
[2023-12-11] MEDS: CEFAZOLIN 1 GM in Sodium Chloride 0.9% 100 ML IVPB SCH (13:31)
[2023-12-12 04:46] LABS: #Eosinphils 0.1 thou/uL (0.0-0.7); #Monocytes 0.8 thou/uL (0.11-0.59); #Neutrophils 9.4 thou/uL (1.40-6.50); %Basophils 0.3 % (0.0-1.0); %Eosinophils 1.1 % (0.0-10.0); %Lymphocytes 10.2 % (21.0-51.0); %Monocytes 6.5 % (0.0-10.0); %Neutrophils 81.2 % (42.0-75.0); Hematocrit 23.8 % (42.0-52.0); Hemoglobin 7.9 g/dL (14.0-18.0); Mean Corpuscular HGB CONC 33.2 g/dL (32.0-36.0); Mean Corpuscular Hemoglobin 27.6 pg (27.0-31.0); Mean Corpuscular Volume 83.2 fl (78.0-98.0); Mean Platelet Volume 9.9 fL (7.4-10.4); Platelet Count 440 10x3/uL (130-400); RBC Distribution Width 14.5 % (11.5-14.5); Red Blood Cell (RBC) Count 2.86 mill/uL (4.70-6.10); White Blood Cell (WBC) Count 11.6 10x3/uL (4.8-10.8)
[2023-12-12 05:10] LABS: Anion Gap 12 mmol/L (10-20); BUN (Urea Nitrogen) 35 mg/dL (8.4-25.7); Calc. Creatinine Clearance 13 mL/min (70-130); Calcium 8.3 mg/dL (7.8-10.44); Carbon Dioxide 18 mmol/L (23-31); Chloride 110 mmol/L (98-107); Estimated GFR 13; Glucose 98 mg/dL (80-115); Potassium 4.4 mmol/L (3.5-5.1); Sodium 136 mmol/L (136-145)
[2023-12-12] MEDS: Sodium Chloride 0.9% 1,000 ML IV SCH (08:40)
[2023-12-12 17:07] LABS: Bilirubin Negative (Negative); Blood, Urine 1+ (Negative); CAUTI Indications for Culture Dysuria,urgency,freq; Clarity Clear (Clear); Glucose, Urine (Dipstick) Normal (Negative); Ketone, Urine Negative (Negative); Leukocyte 500 Leu/uL (Negative); Nitrite Negative (Negative); Protein, Urine (Dipstick) 10 mg/dL (Neg-Trace); Specific Gravity, Urine 1.008 (1.002-1.036); Squamous Epithelial None Seen HPF (0-3); Urobilinogen Normal mg/dL (Less than 2); WBC/HPF Greater than 50 HPF (0-3)
[2023-12-12 17:20] LABS: Bacteria/HPF 1+ HPF (None Seen)
[2023-12-12 17:22] LABS: Urine Culture Reflex Yes Yes
[2023-12-13 06:40] LABS: #Basophils 0.1 thou/uL (0.0-0.2); #Eosinphils 0.3 thou/uL (0.0-0.7); #Monocytes 0.6 thou/uL (0.11-0.59); #Neutrophils 8.9 thou/uL (1.40-6.50); %Basophils 0.4 % (0.0-1.0); %Eosinophils 2.8 % (0.0-10.0); %Lymphocytes 12.4 % (21.0-51.0); %Monocytes 5.5 % (0.0-10.0); %Neutrophils 78.3 % (42.0-75.0); Hematocrit 25.1 % (42.0-52.0); Hemoglobin 8.1 g/dL (14.0-18.0); Mean Corpuscular HGB CONC 32.3 g/dL (32.0-36.0); Mean Corpuscular Hemoglobin 26.9 pg (27.0-31.0); Mean Corpuscular Volume 83.4 fl (78.0-98.0); Mean Platelet Volume 9.8 fL (7.4-10.4); Platelet Count 470 10x3/uL (130-400); RBC Distribution Width 14.8 % (11.5-14.5); Red Blood Cell (RBC) Count 3.01 mill/uL (4.70-6.10); White Blood Cell (WBC) Count 11.4 10x3/uL (4.8-10.8)
[2023-12-13 07:05] LABS: Anion Gap 15 mmol/L (10-20); BUN (Urea Nitrogen) 34 mg/dL (8.4-25.7); Calc. Creatinine Clearance 13 mL/min (70-130); Calcium 8.5 mg/dL (7.8-10.44); Carbon Dioxide 16 mmol/L (23-31); Cardiac Risk 7.9 (Less than 4.5); Chloride 110 mmol/L (98-107); Cholesterol 134 mg/dl (< 200 Desired); Estimated GFR 13; Glucose 91 mg/dL (80-115); HDL Cholesterol 17 mg/dL (>60 Neg Risk); LDL Cholesterol, Calculated 98 mg/dL; Potassium 4.9 mmol/L (3.5-5.1); Sodium 136 mmol/L (136-145); Triglycerides 96 mg/dL (Less than 150)
[2023-12-13] MEDS: Sodium Bicarbonate 150 MEQ in Dextrose 5% in Water 1,000 ML IV SCH (11:31)
[2023-12-13] MEDS: EPOETIN ALFA-EPBX 10,000 UNITS/ML VIAL SC SCH (13:44)
[2023-12-13] MEDS: Megestrol Acetate 800 MG/20 ML UDCUP PO SCH ×2 (13:45→20:39)
[2023-12-13] MEDS ORDERED: Megestrol Acetate 40 MG TAB PO SCH (15:00)
[2023-12-13] MEDS: Metoclopramide HCl 10 MG (2 mL) VIAL IVP PRN (19:00)
[2023-12-14] MEDS: HumaLOG 300 UNITS/3 ML VIAL SC PRN (00:30)
[2023-12-14 06:27] LABS: #Monocytes 0.6 thou/uL (0.11-0.59); #Neutrophils 10.2 thou/uL (1.40-6.50); %Basophils 0.3 % (0.0-1.0); %Eosinophils 0.3 % (0.0-10.0); %Monocytes 4.9 % (0.0-10.0); %Neutrophils 85.7 % (42.0-75.0); Hematocrit 22.7 % (42.0-52.0); Hemoglobin 7.5 g/dL (14.0-18.0); Mean Corpuscular Hemoglobin 27.5 pg (27.0-31.0); Mean Corpuscular Volume 83.2 fl (78.0-98.0); Mean Platelet Volume 9.9 fL (7.4-10.4); Platelet Count 436 10x3/uL (130-400); RBC Distribution Width 14.9 % (11.5-14.5); Red Blood Cell (RBC) Count 2.73 mill/uL (4.70-6.10); White Blood Cell (WBC) Count 11.9 10x3/uL (4.8-10.8)
[2023-12-14 06:48] LABS: Anion Gap 21 mmol/L (10-20); BUN (Urea Nitrogen) 41 mg/dL (8.4-25.7); Calc. Creatinine Clearance 12 mL/min (70-130); Calcium 8.7 mg/dL (7.8-10.44); Carbon Dioxide 13 mmol/L (23-31); Chloride 106 mmol/L (98-107); Estimated GFR 12; Glucose 225 mg/dL (80-115); Potassium 4.9 mmol/L (3.5-5.1); Sodium 135 mmol/L (136-145)
[2023-12-14] MEDS: Sodium Bicarbonate Tab 325 MG TAB PO SCH (09:01)
[2023-12-14] MEDS: Metoprolol Tartrate 25 MG TAB PO SCH (14:28)
[2023-12-15 09:18] LABS: Anion Gap 16 mmol/L (10-20); BUN (Urea Nitrogen) 42 mg/dL (8.4-25.7); Calc. Creatinine Clearance 11 mL/min (70-130); Calcium 8.6 mg/dL (7.8-10.44); Carbon Dioxide 19 mmol/L (23-31); Chloride 105 mmol/L (98-107); Estimated GFR 11; Glucose 146 mg/dL (80-115); Sodium 135 mmol/L (136-145)
[2023-12-15 22:04] VITALS: BP 100/68; TEMP 98.7
== END 2023-12-15 21:55 | disposition home or self-care (01) | DRG 872 ==
LOC: ERS 23:52 → INTOOBSV 12-09 01:59 → ERHOLD 12-09 01:59 → OBSVTOIN 12-09 04:33 → 2NO 12-09 11:03
PROVIDERS: ADMIT Internal Medicine; ATTEND Hospitalist
PROC: 4A00X4Z Measurement of Central Nervous Electrical Activity, External Approach (ICD-10-PCS; principal; 2023-12-12)
PROC: 3E03329 Introduction of Other Anti-infective into Peripheral Vein, Percutaneous Approach (ICD-10-PCS; 2023-12-12)
DX: A41.01 Sepsis due to Methicillin susceptible Staphylococcus aureus (principal); I13.0 Hypertensive heart and chronic kidney disease with heart failure and stage 1 through stage 4 chronic kidney disease, or unspecified chronic kidney disease; E87.20 Acidosis, unspecified; I50.32 Chronic diastolic (congestive) heart failure; N12 Tubulo-interstitial nephritis, not specified as acute or chronic; N17.9 Acute kidney failure, unspecified; N18.5 Chronic kidney disease, stage 5; E11.22 Type 2 diabetes mellitus with diabetic chronic kidney disease; N40.0 Benign prostatic hyperplasia without lower urinary tract symptoms; N18.30 Chronic kidney disease, stage 3 unspecified; K59.00 Constipation, unspecified; E87.5 Hyperkalemia; E11.65 Type 2 diabetes mellitus with hyperglycemia; D63.1 Anemia in chronic kidney disease; G93.89 Other specified disorders of brain; R30.0 Dysuria; Z79.82 Long term (current) use of aspirin; Z79.4 Long term (current) use of insulin; Z79.899 Other long term (current) drug therapy; Z91.148 Patient's other noncompliance with medication regimen for other reason
CPT/HCPCS: 36415; 36416; 74176; 80048; 80053; 80061; 80202; 80306; 81001; 82010; 82805; 83605; 83690; 84484; 85025; 87040; 87077; 87086; 87149; 87186; 93005; 93306; 95816; 95819; C9113; J0690; J0696; J1815; J2272; J2405; J2765; J3370; J3490; J7050; J7070; Q5106